=== PATIENT | male | born 1975 | race Caucasian/White ===

== ENCOUNTER 2016-11-24 04:17 | Emergency (ER) | payer MEDICAID ==
[~2016-11-24] VITALS: Ht 175.3 cm; Wt 100.0 kg
[2016-11-24 04:19] VITALS: Ht 175.3 cm; Wt 100.0 kg
[2016-11-24] MEDS ORDERED: CYCL5TAB PO (04:29)
[2016-11-24] MEDS ORDERED: NAPR-260 PO (04:29)
[2016-11-24 04:47] VITALS: BP 128/90; PULSE 68; RESP 20
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
== END 2016-11-24 04:48 | disposition home or self-care (01) ==
LOC: FTE 04:17
DX: S13.9XXA Sprain of joints and ligaments of unspecified parts of neck, initial encounter (principal); S43.401A Unspecified sprain of right shoulder joint, initial encounter; F17.210 Nicotine dependence, cigarettes, uncomplicated; V89.2XXA Person injured in unspecified motor-vehicle accident, traffic, initial encounter
CPT/HCPCS: 99283

== ENCOUNTER 2016-12-21 15:28 | Emergency (ER) | payer MEDICAID ==
[~2016-12-21] VITALS: Wt 100.0 kg
[~2016-12-21 15:28] MED LIST: CYCL5TAB PO; NAPR-260 PO
--- NOTE | 2016-12-21 18:09 | RADRPT ---
PROCEDURE: XR Foot. CLINICAL INDICATION: The patient stepped on a foreign body. TECHNIQUE: AP, lateral and oblique views of the left foot was obtained. COMPARISON: There are no similar studies submitted for comparison. FINDINGS: There is normal bone mineralization. No radiopaque foreign body is identified. There is no acute fracture or dislocation. No osseous erosions are identified. The joint spaces are within normal limits. There is no soft tissue swelling. IMPRESSION: No acute fracture or dislocation. No radiopaque foreign body. Further findings as detailed above. RPTAT: PP .Lyle Orlando MD, Date Time Electronically viewed and signed by .Lyle Orlando MD, on 12/21/2016 18:08 .F/
[2016-12-21] MEDS ORDERED: IBUP800T25 PO (18:22)
[2016-12-21] MEDS ORDERED: MUPI22OI2 TOP (18:22)
--- NOTE | 2016-12-21 18:28 | ERD ---
ER Documentation Chief Complaint Date/Time DATE: 12/21/16 TIME: 18:26 Chief Complaint LEFT FOOT INJURY AFTER STEPPING ON WOOD YESTERDAY HPI 41-year-old male presents with left foot pain. He believes he stepped on a piece of wood yesterday which caused a small laceration to his left foot and he said he pulled somewhat out of it today. He is unable to bear weight because of the pain. His tetanus is up-to-date as he got one last 6 months ago. No fever. No numbness or tingling. No bleeding or drainage. ROS All systems reviewed and are negative except as per history of present illness. Medications Home Meds Active Scripts Ibuprofen* (Motrin*) 800 Mg Tab, 800 MG PO Q6, #30 TAB Prov:ALDAIR SIBLEY PA-C 12/21/16 Mupirocin* (Bactroban*) 2% -22 Gram Oint...g., 1 APPLIC TOP BID for 7 Days, EA Prov:ALDAIR SIBLEY PA-C 12/21/16 Cyclobenzaprine Hcl* (Cyclobenzaprine Hcl*) 5 Mg Tablet, 5 MG PO Q8H Y for PAIN , #15 TAB Prov:GLENN ANDREWS PA-C 11/24/16 Naproxen* (Naprosyn*) 500 Mg Tablet, 500 MG PO BID Y for PAIN AND/OR INFLAMMATION, #30 TAB Prov:GLENN ANDREWS PA-C 11/24/16 Allergies Allergies: Coded Allergies: No Known Allergy (Unverified , 12/21/16) PMhx/Soc History of Surgery: Yes (left arm) Anesthesia Reaction: No Hx Neurological Disorder: No Hx Respiratory Disorders: No Hx Cardiac Disorders: No Hx Psychiatric Problems: No Hx Miscellaneous Medical Probl: No Hx Alcohol Use: Yes Hx Substance Use: Yes Hx Tobacco Use: Yes Smoking Status: Current every day smoker FmHx Family History: No diabetes Physical Exam Vitals Vital Signs Date Time Temp Pulse Resp B/P Pulse Ox O2 Delivery O2 Flow Rate FiO2 12/21/16 15:33 98.8 98 17 137/84 97 Physical Exam Const: [] Head: Atraumatic Eyes: Normal Conjunctiva ENT: Normal External Ears, Nose and Mouth. Neck: Full range of motion..~ No meningismus. Resp: Clear to auscultation bilaterally Cardio: Regular rate and rhythm, no murmurs Skin: Plantar surface of the left foot has a small superficial abrasion approximately 3-4 cm in length, it is not gaping and open and there is no evidence of retained foreign body, no surrounding erythema, no bleeding or drainage Procedures/MDM 41-year-old stepped on foreign body yesterday. He pulled it out earlier. His tetanus is up-to-date. X-ray shows no evidence of fracture, dislocation, or foreign body. He was given crutches and wound care. He was given a prescription for Bactroban cream and ibuprofen. Patient counseled regarding my diagnostic impression and care plan. Prior to discharge all questions answered. Pt agrees with treatment plan and understands strict return precautions. Pt is instructed to follow up with primary care provider within 24-48 hours. Precautionary instructions provided including instructions to return to the ER if not improving or for any worsening or changing symptoms or concerns. Departure Diagnosis: Primary Impression: Foot contusion Condition: Stable Patient Instructions: Contusion, Foot Additional Instructions: Call your primary care doctor TOMORROW for an appointment during the next 1-2 days.See the doctor sooner or return here if your condition worsens before your appointment time. ALDAIR SIBLEY PA-C Dec 21, 2016 18:28
== END 2016-12-21 19:10 | disposition home or self-care (01) ==
LOC: FTE 15:28
DX: S90.32XA Contusion of left foot, initial encounter (principal); F17.210 Nicotine dependence, cigarettes, uncomplicated; W22.8XXA Striking against or struck by other objects, initial encounter; Y92.9 Unspecified place or not applicable
CPT/HCPCS: 73630; Z7502

== ENCOUNTER 2016-12-29 04:22 | Emergency (ER) | payer MEDICAID ==
[~2016-12-29] VITALS: Ht 170.2 cm; Wt 101.5 kg
[~2016-12-29 04:22] MED LIST changes: +IBUP800T25 PO; +MUPI22OI2 TOP
[2016-12-29 04:25] VITALS: Ht 170.2 cm; Wt 101.5 kg
[2016-12-29] MEDS ORDERED: CEFAZOLIN 1 GM INJ IM ONE (05:00)
[2016-12-29] MEDS ORDERED: SULF1TAB31 PO (05:04)
[2016-12-29] MEDS ORDERED: CEPH-443 PO (05:04)
[2016-12-29] MEDS ORDERED: IBUP-1542 PO (05:04)
--- NOTE | 2016-12-29 05:15 | ERD ---
ER Documentation Chief Complaint Date/Time DATE: 12/29/16 TIME: 05:11 Chief Complaint stepped on a sharp wood 1 week ago on left foot HPI 41-year-old male presents here in emergency department for complaints of a puncture wound on the plantar aspect of the left foot and a possible foreign body, patient stepped on a wood, felt it wood is still in place. Patient is complaining of pain sharp pain, 6/10 scale, as was upon touching the area. Patient did not take any medications to help with symptoms. Patient does not have any numbness or tingling. Patient does not have any fever or chills. ROS All systems reviewed and are negative except as per history of present illness. Medications Home Meds Active Scripts Ibuprofen* (Motrin*) 600 Mg Tab, 600 MG PO Q6H Y for PAIN AND OR ELEVATED TEMP, #30 TAB Prov:NIKI VASQUEZ NP 12/29/16 Sulfamethoxazole/Trimethoprim* (Bactrim Ds* Tablet) 1 Each Tablet, 1 TAB PO BID , #20 TAB Prov:NIKI VASQUEZ NP 12/29/16 Cephalexin* (Keflex*) 500 Mg Capsule, 500 MG PO QID for 10 Days, CAP Prov:NIKI VASQUEZ NP 12/29/16 Ibuprofen* (Motrin*) 800 Mg Tab, 800 MG PO Q6, #30 TAB Prov:ALDAIR SIBLEY PA-C 12/21/16 Mupirocin* (Bactroban*) 2% -22 Gram Oint...g., 1 APPLIC TOP BID for 7 Days, EA Prov:ALDAIR SIBLEY PA-C 12/21/16 Cyclobenzaprine Hcl* (Cyclobenzaprine Hcl*) 5 Mg Tablet, 5 MG PO Q8H Y for PAIN , #15 TAB Prov:GLENN ANDREWS PA-C 11/24/16 Naproxen* (Naprosyn*) 500 Mg Tablet, 500 MG PO BID Y for PAIN AND/OR INFLAMMATION, #30 TAB Prov:GLENN ANDREWS PA-C 11/24/16 Allergies Allergies: Coded Allergies: No Known Allergy (Unverified , 12/21/16) PMhx/Soc Last tetanus immunization was 6 months ago. History of Surgery: Yes (L Wrist Surg) Anesthesia Reaction: No Hx Neurological Disorder: No Hx Respiratory Disorders: No Hx Cardiac Disorders: No Hx Psychiatric Problems: No Hx Miscellaneous Medical Probl: No Hx Alcohol Use: No Hx Substance Use: Yes (smokes weed) Hx Tobacco Use: Yes (3 sticks/day) Smoking Status: Current every day smoker FmHx Family History: No coronary disease, No diabetes, No other Physical Exam Vitals Vital Signs Date Time Temp Pulse Resp B/P Pulse Ox O2 Delivery O2 Flow Rate FiO2 12/29/16 04:25 97.5 93 20 138/83 98 Physical Exam GENERAL: The patient is well developed and appropriate for usual state of health, in no apparent distress. CHEST: Clear to auscultation bilaterally. There are no rales, wheezes or rhonchi. HEART: Regular rate and rhythm. No murmurs, clicks, rubs or gallops. No S3 or S4. ABDOMEN: Soft, nontender and nondistended. Good bowel sounds. No rebound or guarding. No gross peritonitis. No gross organomegaly or masses. No Wakefield sign or McBurney point tenderness. BACK: No midline or flank tenderness. EXTREMITIES: Equal pulses bilaterally. There is no peripheral clubbing, cyanosis or edema. No focal swelling or erythema. Full range of motion. Grossly neurovascularly intact. NEURO: Alert and oriented. Cranial nerves 2-12 intact. Motor strength in all 4 extremities with 5/5 strength. Sensation grossly intact. Normal speech and gait. SKIN: Noted puncture wound on the plantar aspect of the left foot, palpable foreign body noted. There is no apparent rash or petechia. The skin is warm and dry. HEMATOLOGIC AND LYMPHATIC: There is no evidence of excessive bruising or lymphedema. No gross cervical, axillary, or inguinal lymphadenopathy. Results 24 hrs Current Medications Medications (Trade) Dose Ordered Sig/Argenis Route PRN Reason Start Time Stop Time Status Last Admin Dose Admin Cefazolin Sodium (Ancef) 1 gm ONCE ONCE IM 12/29/16 05:00 12/29/16 05:01 DC 12/29/16 04:46 Ancef IM injection was given here in the emergency department, tolerated medication well. Procedures/MDM Procedure note: After patient's verbal consent, the foreign body palpated on the plantar aspect of the foot, was removed using a tweezer, patient tolerated procedure well, was able to remove a piece of wood. The wound was lavaged afterwards, a dry dressing was applied afterwards. Medical decision making: Patient has a retained foreign body in the left foot and a puncture wound, the foreign body was removed without any difficulty, noted some infection in affected area. No neurovascular compromise. No symptoms of sepsis at this time, patient appears well and is hemodynamically stable. Patient was given prescription for Keflex, Bactrim, ibuprofen, is advised to do wound care on affected area, patient was advised to return to emergency department for any worsening symptoms. Disposition: Home. Stable Departure Diagnosis: Primary Impression: Retained foreign body Additional Impression: Puncture wound Condition: Stable Patient Instructions: Foreign Body, Soft Tissue (Removed), Puncture Wound, Foot NIKI VASQUEZ NP Dec 29, 2016 05:15
== END 2016-12-29 05:11 | disposition home or self-care (01) ==
LOC: FTE 04:22
DX: S91.342A Puncture wound with foreign body, left foot, initial encounter (principal); F17.210 Nicotine dependence, cigarettes, uncomplicated; W22.8XXA Striking against or struck by other objects, initial encounter; Y92.9 Unspecified place or not applicable
CPT/HCPCS: 10120; 96372; J0690; Z7502